=== PATIENT | male | born 1955 | race Caucasian/White ===

== ENCOUNTER 2018-04-18 07:35 | Day surgery (SDC) | payer MEDICAID, OTHER ==
[2018-04-18] VITALS (10 sets, daily range): BP systolic 101–131; BP diastolic 70–92
[~2018-04-18] VITALS: Ht 180.3 cm; Wt 86.2 kg
--- NOTE | 2018-04-18 07:40 | Pre-Procedure Note/Attestation ---
Pre-Procedure Note/Attestation Complete Prior to Procedure Planned Procedure: right Procedure Narrative: cataract extraction with implant right eye Indications for Procedure Pre-Operative Diagnosis: cataract right eye Attestation I attest that I discussed the nature of the procedure; its benefits; risks and complications; and alternatives (and the risks and benefits of such alternatives ), prior to the procedure, with the patient (or the patient's legal field sales representative). I attest that, if there was a reasonable possibility of needing a blood transfusion, the patient (or the patient's legal field sales representative) was given the [facility] standardized written summary, pursuant to the Noble Throckmorton Blood Safety Act ([place] Health and Safety Code # 1645, as amended). I attest that I re-evaluated the patient just prior to the surgery and that there has been no change in the patient's H&P, except as documented below: David Bellamy MD Apr 18, 2018 07:40
[2018-04-18] MEDS ORDERED: Akten 3.5% 1ml Btl ONE ×2 (07:43→08:15)
[2018-04-18] MEDS ORDERED: Diclofenac Sod 0.1% Op Soln ONE (07:43)
[2018-04-18] MEDS ORDERED: Vigamox Opth Soln 3ml ONE (07:43)
[2018-04-18] MEDS ORDERED: Phenylephrine 2.5% Op 2ml Soln ONE (07:43)
[2018-04-18] MEDS ORDERED: Tobradex Opth Susp 2.5ml ONE ×2 (07:43→08:15)
[2018-04-18] MEDS ORDERED: Tropicamide 1% Opth 15ml Soln ONE (07:43)
[2018-04-18] MEDS ORDERED: MONTELUKAST SOD10 MG ORAL (07:47)
[2018-04-18] MEDS ORDERED: FLOVENT2 PUFF1 INH (07:47)
[2018-04-18] MEDS ORDERED: PROVENTIL HFA6.7 G1 IH (07:47)
[2018-04-18] MEDS: Phenylephrine 2.5% Op 2ml Soln RIGHT EYE SCH ×3 (08:01→08:18)
[2018-04-18] MEDS: Tropicamide 1% Opth 15ml Soln RIGHT EYE SCH ×3 (08:01→08:18)
[2018-04-18] MEDS: Akten 3.5% 1ml Btl RIGHT EYE SCH ×3 (08:01→08:18)
[2018-04-18] MEDS: Vigamox Opth Soln 3ml RIGHT EYE SCH ×3 (08:01→08:18)
[2018-04-18] MEDS: Tobradex Opth Susp 2.5ml RIGHT EYE SCH ×3 (08:01→08:18)
[2018-04-18] MEDS: Diclofenac Sod 0.1% Op Soln RIGHT EYE SCH ×3 (08:01→08:18)
[2018-04-18] MEDS ORDERED: Lidocaine 1% MPF 10mg/ml 5ml ONE (08:15)
[2018-04-18] MEDS ORDERED: EPINEPHrine 1mg/1ml Amp ONE (08:15)
[2018-04-18] MEDS ORDERED: Dexamethasone 4mg/ml vial ONE (08:15)
[2018-04-18] MEDS ORDERED: BSS 15ml BTL ONE (08:16)
[2018-04-18] MEDS ORDERED: Povidone-Iodine 5% opth solution ONE (08:16)
[2018-04-18] MEDS ORDERED: Sodium Hyaluronate 14 mg/ml 0.85ml ONE (08:16)
[2018-04-18] MEDS ORDERED: BSS 500ml btl ONE (08:16)
[2018-04-18] MEDS ORDERED: ADVAIR HFA 115-12 GM INH (08:28)
--- NOTE | 2018-04-18 08:50 | Anethesia Preoperative Eval ---
Anesthesia Pre-op PMH/ROS General Date of Evaluation: Apr 18, 2018 Time of Evaluation: 08:49 Anesthesiologist: Maureen Rose CRNA ASA Score: ASA 2 Mallampati Score Class I : Soft palate, uvula, fauces, pillars visible Class II: Soft palate, uvula, fauces visible Class III: Soft palate, base of uvula visible Class IV: Only hard plate visible Mallampati Classification: Class II Surgeon: Josesito Diagnosis: RIGHT eye cataract Surgical Procedure: RIGHT eye cataract with IOL implant Anesthesia History: none Family History: no anesthesia problems Allergies: Coded Allergies: PENICILLINS (Verified Allergy, Unknown, 04/18/18) Medications: see eMAR Patient NPO?: Yes NPO Date: Apr 18, 2018 NPO Time: 00:00 Past Medical History Cardiovascular: Denies: HTN, CAD, PR, valve dz, arrhythmia, other Pulmonary: Reports: asthma; Denies: COPD, MY[place], other Gastrointestinal/Genitourinary: 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 Exam Physician Exam Last Vital Signs Date Time Temp Pulse Resp B/P (MAP) Pulse Ox O2 Delivery O2 Flow Rate FiO2 04/18/18 08:08 Room Air 04/18/18 08:05 98.1 63 18 131/78 95 Constitutional: NAD Neurologic: CN 2-12 intact Cardiovascular: RRR Respiratory: CTA Gastrointestinal: S/NT/ND Airway Exam Mallampati Score: Class II MO: full Neck: FROM TMD: > 3 FB ROM: full Teeth: intact Dentures: no upper, no lower Anesthesia Pre-op A/P Studies Pre-op Studies: EKG - NSR Risk Assessment & Plan Assessment: ASA 2 ok to proceed Plan: MAC Status Change Before Surgery: No Pre-Antibiotics Given Within 1 Hr of Incision: No RoseMaureen [employer] Apr 18, 2018 08:50
[2018-04-18] MEDS ORDERED: NS Irrig 1000ml ONE (09:00)
[2018-04-18] MEDS ORDERED: LR 1000ml ONE (09:00)
[2018-04-18] MEDS ORDERED: Sterile Water Irrig 1000ml IRRIG ONE (09:00)
[2018-04-18] MEDS ORDERED: fentaNYL 100 mcg/2 mL IV ONE (09:07)
--- NOTE | 2018-04-18 09:40 | Brief Operative Note ---
Immediate Post Operative Note Operative Note Pre-op Diagnosis: cataract right eye Procedure: phacoemulsification of cataract with implant right eye Post-op Diagnosis: same as pre-op Surgeon: david haider Technologist Development: none Anesthesiologist: kim grimes crna Anesthesia: MAC Specimen: none Complications: none Condition: stable Fluids: none Estimated Blood Loss: none Drains: none Implant(s) used?: Yes David Haider MD Apr 18, 2018 09:40
--- NOTE | 2018-04-18 09:48 | Immediate Post-Op Evaluation ---
Immediate Post-Op Evalulation Immediate Post-Op Evalulation Procedure: RIGHT eye cataract extraction with IOL implant Date of Evaluation: Apr 18, 2018 Time of Evaluation: 09:06 IV Fluids: LR 200 ml Blood Pressure Systolic: 124 Blood Pressure Diastolic: 92 Pulse Rate: 70 Respiratory Rate: 16 O2 Sat by Pulse Oximetry: 96 Temperature (Fahrenheit): 97.6 Pain Score (1-10): 0 Nausea: No Vomiting: No Complications stable Patient Status: awake, reacts, patent Hydration Status: other Given Within 1 Hr of Incision: Maureen Hicks CRNA Apr 18, 2018 09:48
--- NOTE | 2018-04-18 10:22 | 48 Hour Post Anesthesia Eval ---
Post Anesthesia Evaluation Procedure: RIGHT eye cataract extraction with IOL implant Date of Evaluation: Apr 18, 2018 Time of Evaluation: 10:21 Blood Pressure Systolic: 111 0: 82 Pulse Rate: 69 Respiratory Rate: 18 Temperature (Fahrenheit): 97.6 O2 Sat by Pulse Oximetry: 96 Airway: patent Nausea: No Vomiting: No Pain Intensity: 0 Hydration Status: adequate Cardiopulmonary Status: stable Mental Status/LOC: patient returned to baseline Follow-up Care/Observations: per opthamology Post-Anesthesia Complications: none Follow-up care needed: ready to discharge Maureen Rose CRNA Apr 18, 2018 10:22
[2018-04-18] MEDS ORDERED: Midazolam 2mg/2ml Inj ONE (10:27)
--- NOTE | 2018-04-18 16:15 | Operative Note - Dictated ---
DATE OF OPERATION: 04/18/2018 PREOPERATIVE DIAGNOSIS: Cataract, right eye. POSTOPERATIVE DIAGNOSIS: Cataract, right eye. PROCEDURE: Phacoemulsification cataract, right eye with placement of posterior chamber intraocular lens. SURGEON: David Bellamy M.D. COGENERATION TECHNICIAN: None. ANESTHESIA: MAC/topical. ANESTHESIOLOGIST: Maureen Rose CRNA INDICATION FOR PROCEDURE: Poor vision, right eye. DESCRIPTION OF FINDINGS: Combined form of cataract, right eye. DESCRIPTION OF PROCEDURE: The patient received a topical anesthetic block consisting of 3.5% Akten eye drops. The eye was then prepped and draped in the usual manner. A lid speculum was placed and a Zeiss microscope was positioned. A temporal corneal groove was made with the brianna blade. A SuperSharp blade made a stab incision at the 12 o'clock position. A 0.1 mL of 1% nonpreserved intracameral lidocaine was injected. Healon was instilled into the anterior chamber and a trapezoidal brianna blade was used to complete the temporal corneal wound. A cystotome was used to create an anterior capsular flap. Utrata forceps were used to complete the capsulorrhexis. BSS on a cannula was used to hydrodissect the nucleus. The lens nucleus phacoemulsified in a phaco-fracture technique. Remaining cortical material was removed with the I/A and the posterior capsule was polished with the I/A on Cap vac. Healon was instilled into the capsular bag and anterior chamber, and an TECNIS foldable one-piece posterior chamber intraocular lens, preloaded, model PCB00, power 19.5 diopter, serial #[id number] was placed in the capsular bag. The I/A tip was used to remove the Healon and position the lens. The wound edge was hydrated with BSS and a blunt-tipped cannula. The wound was checked and found to be watertight. The lid speculum was removed and a drop of TobraDex and Vigamox was placed. A clear plastic shield was taped over the eye. The patient tolerated the procedure well and left the operating room in good condition. David Bellamy M.D. ([facility]) DR: Carter JOB#: [id number] CC:
--- NOTE | 2018-04-18 16:48 | Cardiology Report ---
APPROVED REPORT EKG Measurement Heart [id number] MS [id number] Normal sinus rhythm Normal ECG
== END 2018-04-18 11:25 | disposition home or self-care (01) ==
LOC: SUR 07:35
DX: H25.811 Combined forms of age-related cataract, right eye (principal); J45.909 Unspecified asthma, uncomplicated; E78.2 Mixed hyperlipidemia; Z89.019 Acquired absence of unspecified thumb
CPT/HCPCS: 66984; 93005; J0171; J1100; J2250; J3010; V2632; 94003; 94150

== ENCOUNTER 2018-05-16 06:47 | Day surgery (SDC) | payer OTHER ==
[~2018-05-16] VITALS: Ht 180.3 cm; Wt 86.2 kg
[2018-05-16] VITALS (8 sets, daily range): BP systolic 102–122; BP diastolic 59–80
[~2018-05-16 06:47] MED LIST: ADVAIR HFA 115-12 GM INH; FLOVENT2 PUFF1 INH; MONTELUKAST SOD10 MG ORAL; PROVENTIL HFA6.7 G1 IH
[2018-05-16] MEDS ORDERED: EPINEPHrine 1mg/1ml Amp ONE (07:10)
[2018-05-16] MEDS ORDERED: Lidocaine 1% MPF 10mg/ml 5ml ONE (07:10)
[2018-05-16] MEDS ORDERED: Carbachol 0.01% Op Soln 1.5ml vial ONE (07:10)
[2018-05-16] MEDS ORDERED: Povidone-Iodine 5% opth solution ONE (07:11)
[2018-05-16] MEDS ORDERED: Dexamethasone 4mg/ml vial ONE (07:11)
[2018-05-16] MEDS ORDERED: BSS 500ml btl ONE (07:11)
[2018-05-16] MEDS ORDERED: BSS 15ml BTL ONE (07:11)
[2018-05-16] MEDS ORDERED: acetaZOLAMIDE 500mg Inj ONE (07:11)
[2018-05-16] MEDS ORDERED: Sodium Hyaluronate 14 mg/ml 0.85ml ONE (07:12)
[2018-05-16] MEDS: Tobradex Opth Susp 2.5ml LEFT EYE SCH ×3 (07:17→07:41)
[2018-05-16] MEDS: Akten 3.5% 1ml Btl LEFT EYE SCH ×3 (07:17→07:41)
[2018-05-16] MEDS: Vigamox Opth Soln 3ml LEFT EYE SCH ×3 (07:17→07:41)
[2018-05-16] MEDS: Diclofenac Sod 0.1% Op Soln LEFT EYE SCH ×3 (07:17→07:41)
[2018-05-16] MEDS: Tropicamide 1% Opth 15ml Soln LEFT EYE SCH ×3 (07:17→07:41)
[2018-05-16] MEDS: Phenylephrine 2.5% Op 2ml Soln LEFT EYE SCH ×3 (07:17→07:41)
--- NOTE | 2018-05-16 07:52 | Pre-Procedure Note/Attestation ---
Pre-Procedure Note/Attestation Complete Prior to Procedure Planned Procedure: left Procedure Narrative: phacoemulsification of cataract with implant left eye Indications for Procedure Pre-Operative Diagnosis: cataract left eye Attestation I attest that I discussed the nature of the procedure; its benefits; risks and complications; and alternatives (and the risks and benefits of such alternatives ), prior to the procedure, with the patient (or the patient's legal administrative representative). I attest that, if there was a reasonable possibility of needing a blood transfusion, the patient (or the patient's legal administrative representative) was given the [facility] standardized written summary, pursuant to the Noble Anastasiya Blood Safety Act ([place] Health and Safety Code # 1645, as amended). I attest that I re-evaluated the patient just prior to the surgery and that there has been no change in the patient's H&P, except as documented below: David Bellamy MD May 16, 2018 07:52
[2018-05-16] MEDS ORDERED: LR 1000ml ONE (08:30)
[2018-05-16] MEDS ORDERED: Propofol 200mg/20ml IV ONE (08:30)
[2018-05-16] MEDS ORDERED: Sterile Water Irrig 1000ml IRRIG ONE (08:30)
[2018-05-16] MEDS ORDERED: NS Irrig 1000ml ONE (08:30)
[2018-05-16] MEDS ORDERED: LR 1000ml 1,000 ML IVLG SCH (08:54)
--- NOTE | 2018-05-16 08:54 | Anethesia Preoperative Eval ---
Anesthesia Pre-op PMH/ROS General Date of Evaluation: May 16, 2018 Time of Evaluation: 08:32 Anesthesiologist: Ryan ASA Score: ASA 2 Mallampati Score Class I : Soft palate, uvula, fauces, pillars visible Class II: Soft palate, uvula, fauces visible Class III: Soft palate, base of uvula visible Class IV: Only hard plate visible Mallampati Classification: Class II Surgeon: Josesito Diagnosis: L eye cataract Surgical Procedure: Leye cataract extraction Anesthesia History: none Family History: no anesthesia problems Allergies: Coded Allergies: PENICILLINS (Verified Allergy, Unknown, 04/18/18) Medications: see eMAR Patient NPO?: Yes Past Medical History Cardiovascular: Denies: HTN, CAD, [place], valve dz, arrhythmia, other Pulmonary: Reports: asthma - mild; Denies: COPD, MYNOR, other Gastrointestinal/Genitourinary: Reports: GERD - mild, other - Testicular CA; Denies: CRI, ESRD Neurologic/Psychiatric: Denies: dementia, CVA, depression/anxiety, TIA, other Endocrine: Denies: DM, hypothyroidism, steroids, other HEENT: Reports: cataract (L), cataract (R); Denies: glaucoma, [place] (L), [place] (R), other Hematology/Immune: Denies: anemia, DVT, bleeding disorder, other Musculoskeletal/Integumentary: Denies: OA, RA, DJD, DDD, edema, other PMH Narrative: as above PSxH Narrative: See H&P Anesthesia Pre-op Phys. Exam Physician Exam Last Vital Signs Date Time Temp Pulse Resp B/P (MAP) Pulse Ox O2 Delivery O2 Flow Rate FiO2 05/16/18 07:47 Room Air 05/16/18 07:21 96.8 57 18 102/60 96 Constitutional: NAD Neurologic: CN 2-12 intact Cardiovascular: RRR, no M/R/G Respiratory: CTA Gastrointestinal: S/NT/ND Airway Exam Mallampati Score: Class II MO: full Neck: stiff ROM: full Teeth: missing Dentures: no upper, no lower Anesthesia Pre-op A/P Labs see chart Risk Assessment & Plan Assessment: ASA 2 Plan: MAC Status Change Before Surgery: No Robin Adam MD May 16, 2018 08:54
[2018-05-16] MEDS ORDERED: fentaNYL 100 mcg/2 mL IV PRN (09:00)
--- NOTE | 2018-05-16 09:06 | Brief Operative Note ---
Immediate Post Operative Note Operative Note Pre-op Diagnosis: cataract left eye Procedure: phacoemulsification of cataract with implant left eye Post-op Diagnosis: same as pre-op Surgeon: david haider Anesthesiologist: sue de leon md Anesthesia: MAC Specimen: none Complications: none Condition: stable Fluids: none Estimated Blood Loss: none Drains: none Implant(s) used?: Yes David Haider MD May 16, 2018 09:06
--- NOTE | 2018-05-16 09:46 | Immediate Post-Op Evaluation ---
Immediate Post-Op Evalulation Immediate Post-Op Evalulation Procedure: L eye cataract extraction with IOL Date of Evaluation: May 16, 2018 Time of Evaluation: 09:05 IV Fluids: 200 Blood Products: none Estimated Blood Loss: none Urinary Output: none Blood Pressure Systolic: 116 Blood Pressure Diastolic: 76 Pulse Rate: 72 Respiratory Rate: 20 O2 Sat by Pulse Oximetry: 99 Temperature (Fahrenheit): 97.6 Pain Score (1-10): 1 Nausea: No Vomiting: No Complications none Patient Status: awake, patent, none Hydration Status: adequate Roibn Adam MD May 16, 2018 09:46
--- NOTE | 2018-05-16 09:48 | 48 Hour Post Anesthesia Eval ---
Post Anesthesia Evaluation Procedure: L eye cataract extraction with IOL Date of Evaluation: May 16, 2018 Time of Evaluation: 09:46 Blood Pressure Systolic: 116 0: 68 Pulse Rate: 58 Respiratory Rate: 20 Temperature (Fahrenheit): 97.6 O2 Sat by Pulse Oximetry: 98 Airway: patent Nausea: No Vomiting: No Pain Intensity: 1 Hydration Status: adequate Cardiopulmonary Status: stable Mental Status/LOC: patient returned to baseline Follow-up Care/Observations: n/a Post-Anesthesia Complications: none Follow-up care needed: ready to discharge Robin Adam MD May 16, 2018 09:48
[2018-05-16] MEDS ORDERED: fentaNYL 100 mcg/2 mL IV ONE (10:01)
[2018-05-16] MEDS ORDERED: Midazolam 2mg/2ml Inj ONE (10:02)
--- NOTE | 2018-05-17 13:13 | Operative Note - Dictated ---
DATE OF OPERATION: 05/16/2018 PREOPERATIVE DIAGNOSIS: Combined form of cataract, left eye. POSTOPERATIVE DIAGNOSIS: Combined form of cataract, left eye. PROCEDURE: Phacoemulsification cataract, left eye with placement of posterior chamber intraocular lens. SURGEON: David Bellamy M.D. ALPINE GUIDE: None. ANESTHESIA: MAC/topical. ANESTHESIOLOGIST: Robin Adam M.D. INDICATION FOR PROCEDURE: Poor vision, left eye. DESCRIPTION OF FINDINGS: Combined form of cataract, left eye. DESCRIPTION OF PROCEDURE: The patient received a topical anesthetic block consisting of 3.5% Akten eye drops. The eye was then prepped and draped in the usual manner. A lid speculum was placed and a Zeiss microscope was positioned. A temporal corneal groove was made with the brianna blade. A SuperSharp blade made a stab incision at the 12 o'clock position. A 0.1 mL of 1% nonpreserved intracameral lidocaine was injected. Healon was instilled into the anterior chamber and a 2.5/2.8 mm trapezoidal brianna blade was used to complete the temporal corneal wound. A cystotome was used to create an anterior capsular flap. Utrata forceps were used to complete the capsulorrhexis. BSS on a cannula was used to hydrodissect the nucleus. The lens nucleus phacoemulsified in a phaco-fracture technique. Remaining cortical material was removed with the I/A and the posterior capsule was polished with the I/A on Cap vac. Healon was instilled into the capsular bag and anterior chamber, and a TECNIS preloaded foldable one-piece posterior chamber intraocular lens, model PCB00, power 22.0 diopter, serial #[id number] was placed in the capsular bag. The I/A tip was used to remove the Healon and position the lens. The wound edge was hydrated with BSS and a blunt-tipped cannula. The wound was checked and found to be watertight. The lid speculum was removed and a drop of TobraDex and Vigamox was placed. A clear plastic shield was taped over the eye. The patient tolerated the procedure well and left the operating room in good condition. David Bellamy M.D. ([facility] [place]) DR: ALEXY JOB#: [id number] CC:
== END 2018-05-16 10:30 | disposition home or self-care (01) ==
LOC: SUR 06:47
DX: H25.812 Combined forms of age-related cataract, left eye (principal); Z88.0 Allergy status to penicillin; K21.9 Gastro-esophageal reflux disease without esophagitis; Z85.47 Personal history of malignant neoplasm of testis
CPT/HCPCS: 66984; J0171; J1100; J2250; J2704; J3010; V2632; 94003; 94150